=== PATIENT | female | born 1955 | race Caucasian/White ===

== ENCOUNTER 2016-12-22 18:03 | Emergency (ER) | payer OTHER ==
--- NOTE | 2016-12-22 18:15 | ED Physician Chart ---
Chief Complaint/HPI - Patient Information Date Seen:: 12/22/16 Time Seen:: 18:15 Chief Complaint:: L hand laceration at about 5:45 pm today.. History of Present Illness:: Pt sustained above injury when she was cutting an apple in her kitchen at home. No other injury or bodily pain. Last tetanus immunization is unknown. Allergies:: amoxicillin, clavlanic acid, tetracycline. Vitals:: see Nurse Note. Historian:: Patient Family MD/PCP:: Dr. Bragg LMP:: Postmenopausal. Review:: Nurse's Note Reviewed Review of Systems - Review of Systems General/Constitutional: No fever, No chills, No weight loss, No weakness, No diaphoresis, No edema, No loss of appetite Skin: Rash, No bruising, Other (Laceration in L hand, see HPI.) Head: No headache, No light-headedness Eyes: No loss of vision, No pain, No diplopia ENT: No earache, No nasal drainage, No sore throat, No tinnitus Neck: No neck pain, No swelling, No thyromegaly, No stiffness, No mass noted Cardio Vascular: No chest pain, No palpitations, No PND, No orthopnea, No edema Pulmonary: No SOB, No cough, No sputum, No wheezing GI: No nausea, No vomiting, No diarrhea, No pain, No melena, No hematochezia, No constipation, No hematemesis G/U: No dysuria, No frequency, No hematuria Granite Cutter: No vaginal discharge, No abnormal vaginal bleed Musculoskeletal: No bone or joint pain, No back pain, No muscle pain Endocrine: No polyuria, No polydipsia Psychiatric: No prior psych history Hematopoietic: No bruising, No lymphadenopathy Allergic/Immuno: No urticaria, No angioedema Neurological: No syncope, No focal symptoms, No weakness, No paresthesia, No headache, No seizure, No dizziness, No confusion, No vertigo Past Medical History - Past Medical History Past Medical History: HTN Family History: Heart disease (father, sister, PGF.), HTN (father, sister, PGF.) Social History: Non Smoker, Alcohol (2 beer daily. Pt has been informed about health risks associated with chronic alcohol use and has been advised to quit. 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 Head: Atraumatic Eyes: Lids, conjuctiva normal, PERRL, EOMI Skin: No ecchymosis, Well hydrated, No lymphadenopathy Other Skin comments:: see also Extremities Exam below. ENMT: External ears, nose nl, Nasal exam nl, Lips, teeth, gums nl, Oropharynx nl Neck: Nontender, Full ROM w/o pain, No nuchal rigidity, No bruit, No mass, No stridor Respiratory: Nl effort/Exclusion, Clear to Auscultation, No Wheeze/Rhonchi/Rales Cardio Vascular: RRR, No murmur, gallop, rubs, NL S1 S2 Other Extremities comments:: L hand: FROM of all joints. There is an L shaped superficial laceration, about 2 cm in total length, noticed at lateral dorsum. No active bleeding. No gross deformity or swelling. No detectable motor/sensory/vascular deficit. Good distal capillary refill. Neuro/Psych: Alert/oriented (oriented x 3.), Judgement/insight normal, Mood normal, Normal gait, No focal deficits ED Septic Shock - . Is Septic Shock (SBP<90, OR Lactate>4 mmol\L) present?: No Reassessment (Disposition) - Reassessment Reassessment:: 1919 Discussed with pt at length regarding treatment options. Pt preferred Dermabond laceration repair. Pt's wound in L hand was cleansed with betadine and then was well irrigated with sterile normal saline. Wound was explored. No foreign body was found. Wound was well approximated with Dermabond. Wound is L shaped with a total length approx. 2 cm. 1924 Pt remains stable. Pt requests to go home now. Aftercare instructions given. her will drive her home. Reassessment Condition:: Improved - Diagnosis Diagnosis:: Superficial laceration at L hand, s/p repair with Dermabond. Stable and improved. - Aftercare/Follow up Instructions Aftercare/Follow-Up Instructions:: Refer to Discharge Instructions Notes:: Keep wound clean and dry. Wound care instructions given. F/U with PCP Dr. Bragg in 2-3 days for recheck. Return to ER immediately if condition worsens or if any further questions/problems. Medication Prescribed:: None - Patient Disposition Discharge/Transfer:: Home Time:: 19:25 Condition at Disposition:: Stable, Improved ED Discharge Plan - Patient Disposition Admit/Discharge/Transfer: PT DISCHARGED HOME Condition at Disposition: Improved Instructions: Laceration Care, Adult Accepting Physician: , Primary [Other]
== END 2016-12-22 19:20 | disposition home or self-care (01) ==
LOC: ER 18:03
DX: S61.412A Laceration without foreign body of left hand, initial encounter (principal); I10 Essential (primary) hypertension; W26.0XXA Contact with knife, initial encounter; Y93.89 Activity, other specified; Y92.010 Kitchen of single-family (private) house as the place of occurrence of the external cause; Y99.8 Other external cause status
CPT/HCPCS: 12001; Z7502